=== PATIENT | female | born 1965 | race Caucasian/White ===

== ENCOUNTER → 2018-07-18 | Outpatient (CLI) | payer OTHER ==
--- NOTE | 2018-07-19 12:33 | MM ---
Reason for exam: additional evaluation requested from prior study. Last mammogram was performed 8 years and 4 months ago. History: Patient is postmenopausal. Benign cyst aspiration of the right breast, 2000. Took estrogen for 14 years beginning at age 26. Physical Findings: Nurse did not find any significant physical abnormalities on exam. MG 3D Diag Mammo W/Cad JULIEN Bilateral CC and MLO view(s) were taken. Prior study comparison: March 30, 2010, bilateral diagnostic digital mammog. June 04, 2007, CAD bilateral diagnostic mammogram. The breast tissue is heterogeneously dense. This may lower the sensitivity of mammography. There is a 1.3 cm right upper outer quadrant posterior depth mass 8.5 cm from the nipple, additional upper quadrant subcentimeter middle depth mass is stable back to 2009. ASSESSMENT: Incomplete: need additional imaging evaluation, BI-RAD 0 RECOMMENDATION: Ultrasound of the right breast.
--- NOTE | 2018-07-19 12:42 | USB ---
History: Patient is postmenopausal. Benign cyst aspiration of the right breast, 2000. Took estrogen for 14 years beginning at age 26. US Breast Limited RT Right limited breast ultrasound including focal area of concern, retroareolar and axilla demonstrates 1.3 cm x 1.1 cm x 1.4 cm irregular shape, with angular margins, solid, vascular lesion at 10 o'clock. No suspicious axillary adenopathy. These results were verbally communicated with the patient and result sheet given to the patient on 07/18/18 ASSESSMENT: Highly suggestive of malignancy, BI-RAD 5 RECOMMENDATION: Ultrasound core biopsy of the right breast. Called Dr. Beasley with mammographic findings and has scheduled an appointment for the patient for 07/18/18 at 12:[address] Fletcher. The ultrasound core biopsy is schedualed for 07/29/18 at 12:20. PRELIMINARY REPORT CALLED AND FAXED TO DR. FLETCHER ON 07/18/18. [facility]
== END | disposition home or self-care (01) ==
LOC: RADMAMWWP 09:23
PROVIDERS: ATTEND Obstetrics & Gynecology
DX: N64.4 Mastodynia (principal); R92.8 Other abnormal and inconclusive findings on diagnostic imaging of breast
CPT/HCPCS: 77062; 77066

== ENCOUNTER → 2018-07-18 | Outpatient (CLI) | payer OTHER ==
[2018-07-18 13:12] VITALS: BP 121/68; PULSE 86; RESP 18; TEMP 98.3; BMI 27.1
--- NOTE | 2018-07-18 14:53 | P.GSHP ---
History of Present Illness H&P Date: 07/18/18 Chief Complaint: abnormal mammogram of right breast Hilary is a 53-year-old white female who approximately 6 months ago had a bilateral mammogram done in [place] and was recommended to have a repeat right breast mammogram performed at 6 months. Today she comes in for repeat right breast mammogram which reveals a 1.3 cm area in the right upper outer quadrant of the breast which is of some concern. She subsequently underwent an ultrasound of the right breast which again revealed a 1.4 cm lesion in the upper outer quadrant area and no suspicious axillary adenopathy. The patient herself feels some soreness in the breast but no discrete masses or lesions of concern. She does not report any nipple discharge or skin changes. She does not give any history of any trauma or infection to the breast. Family History: unknown adopted Hormonal History: menarche: 11 : 3, 2 live births, 1 [place], breast fed: no, first born at 20 menopause: hysterctomy at 28 took ovaries; endometriosis BCP: 2 years hormones: 24 years, weaned off 1 year ago Past Surgical History 1. KAYE/BSO 2. gallbaldder 3. appy right shoulder 4. left foot History 1. MS 2. arthritis Social History: smoke: 1/2/PPD for 20 years alcohol: none drugs: none - Constitutional Constitutional: Reports sweats - EENT Eyes: bilateral blurred vision (optic neuritis), bilateral pain Ears: deny: decreased hearing, tinnitus Ears, nose, mouth and throat: Reports headache, Denies sore throat - Breasts Breasts: bilateral: as per HPI - Cardiovascular Comment: fast heart rate - Respiratory Comment: smoker - Gastrointestinal Comment: cholcystectomy, IBS - Genitourinary (Female) Genitourinary: Reports kidney stones - Menstruation Menstruation: Reports post hysterectomy - Musculoskeletal Comment: arthritis, spastic muscles in her legs Musculoskeletal: Reports myalgias - Integumentary Comment: Occasional eczema Integumentary: Denies pruritus, Denies rash - Neurological Neurological: Reports numbness, Reports weakness - Psychiatric Psychiatric: Reports anxiety, Reports depression - Endocrine Endocrine: Reports fatigue, Denies weight change - Hematologic/Lymphatic Comment: none - Allergic/Immunologic Allergic/Immunologic: Reports seasonal allergies Past Medical History Past Medical History: Osteoarthritis (OA) Additional Past Medical History / Comment(s): Multipal sclerosis, opticneuritis, PTSD History of Any Multi-Drug Resistant Organisms: None Reported Past Surgical History: Adenoidectomy, Appendectomy, Cholecystectomy, Hysterectomy, Tonsillectomy Additional Past Surgical History / Comment(s): right shoulder,left foot Additional Past Anesthesia/Blood Transfusion Reaction / Comment(s): vomitting Past Psychological History: Depression, Panic Disorder, PTSD Smoking Status: Current every day smoker Past Drug Use History: None Reported Medications and Allergies Home Medications Medication Instructions Recorded Confirmed Type Atenolol [Tenormin] 37.5 mg PO DAILY 07/18/18 07/18/18 History Biotin 5,000 mcg PO DAILY 07/18/18 07/18/18 History Fluticasone Nasal [place] [Flonase 1 spray EA NOSTRIL DAILY 07/18/18 07/18/18 History Nasal [place]] Sertraline [Zoloft] 50 mg PO DAILY 07/18/18 07/18/18 History Allergies Allergy/AdvReac Type Severity Reaction Status Date / Time iodine AdvReac Severe Anaphylaxis Unverified 07/18/18 13:17 Sulfa (Sulfonamide AdvReac Severe Anaphylaxis Unverified 07/18/18 13:17 Antibiotics) tree nut AdvReac Anaphylaxis Unverified 07/18/18 13:17 Surgical - Exam Vital Signs Temp Pulse Resp BP Pulse Ox 98.3 F 86 18 121/68 99 07/18/18 12:53 07/18/18 12:53 07/18/18 12:53 07/18/18 12:53 07/18/18 12:53 BMI 27.2 - General well developed, well nourished, no distress - Eyes normal ocular movement - ENT normal pinna, no hearing loss - Neck no masses, trachea midline - Respiratory normal respiratory effort, clear to auscultation - Cardiovascular Rhythm: regular Heart Sounds: normal: S1, S2 - Abdomen Abdomen: soft - Integumentary no rash, no abnormal pigmentation - Musculoskeletal normal gait, normal posture - Psychiatric oriented to time, oriented to person, oriented to place, speech is normal, memory intact Breast examination: Right breast: Multi-positional exam some increased fullness in the upper outer quadrant area no dominant discrete masses however appreciated Right axilla: No adenopathy of concern Left breast no adenopathy of concern Multi-positional exam no dominant masses of concern Left axilla: No adenopathy of concern Results Right breast mammogram and ultrasound results reviewed Assessment and Plan Assessment: Impression: 1. Radiographic abnormality right breast 2. Multiple sclerosis 3. Arthritis 4. Irritable bowel syndrome Plan: 1. Ultrasound-guided core biopsy right breast 2. Obtain report of left breast mammogram 3. Medical management of medical conditions 4. Follow-up 1 week after biopsy performed In benefits of the procedure discussed with the patient this will be scheduled in the near future. Cc: Dr. Natasha Lopez
== END | disposition home or self-care (01) ==
LOC: WWCWWP 11:51
PROVIDERS: ATTEND Surgery
DX: Z53.9 Procedure and treatment not carried out, unspecified reason (principal)

== ENCOUNTER → 2018-07-29 | Day surgery (SDC) | payer OTHER ==
[2018-07-29 11:41] VITALS: RESP 16; TEMP 98.9; BMI 27.1
[2018-07-29 13:13] VITALS: BP 99/63; PULSE 84
--- NOTE | 2018-07-29 13:53 | USB ---
EXAMINATION TYPE: US biopsy breast VAD RT, MG diagnostic mammo RT wo CAD DATE OF EXAM: 07/29/2018 CLINICAL HISTORY: R92.8 ABN. LUMA. Abnormal ultrasound. TECHNIQUE: Ultrasound guided core biopsy of right breast with clip placement and follow-up diagnostic two-view mammogram. COMPARISON: Recent 3-D mammogram July 18, 2018. Outside mammogram and ultrasound November 28, 2017 and older studies. FINDINGS: The procedure of ultrasound guided core biopsy was explained to the patient. Benefits, alternatives, and risks were discussed. An informed consent was then obtained. The patient was placed in supine positioning for imaging and for the procedure. Preprocedure ultrasound redemonstrates lobulated heterogeneous hypoechoic 1.4 cm mass at 10:00 position in the right breast enlarged from old outside ultrasound. The overlying skin was prepped and draped in usual sterile fashion. Lidocaine buffered with bicarbonate was used as anesthetic into the skin. Lidocaine with epinephrine is used as anesthetic into the deeper tissue up to area of concern in the right breast. Under ultrasound guidance, a 12-gauge vacuum assisted biopsy gun device was used to obtain 3 core samples. Following this, a biopsy clip was left in lesion. The patient tolerated the procedure well without any immediate complication. The patient was kept in the radiology department for short stay after the procedure and then discharged home in stable condition. Postprocedure mammogram shows successful deployment of clip in corresponding lesion on mammogram upper outer quadrant. IMPRESSION: Successful, uncomplicated ultrasound guided core biopsy of area of concern in the right breast, full pathology results to follow. High index of suspicion noted at time of procedure, enlarging solid mass. 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 See Surgical Pathology Cancer Case Summary. Recommendation Surgical consult of the right breast. YVAN
== END ==
LOC: RADUSWWP 11:23
PROVIDERS: ATTEND Surgery
DX: C50.811 Malignant neoplasm of overlapping sites of right female breast (principal); Z91.040 Latex allergy status; Z91.018 Allergy to other foods; Z88.2 Allergy status to sulfonamides; Z91.09 Other allergy status, other than to drugs and biological substances
CPT/HCPCS: 88305; 77065; 19083; A4648; J2001

== ENCOUNTER → 2018-08-07 | Outpatient (CLI) | payer OTHER ==
[2018-08-07 11:49] VITALS: BP 118/70; PULSE 87; RESP 18; TEMP 98.4
--- NOTE | 2018-08-07 12:45 | P.PN ---
Subjective Progress Note Date: 08/07/18 Principal diagnosis: Patient comes for biopsy results Hilary is a 53-year-old white female who is status post right breast ultrasound core biopsy on 120 . Pathology revealed a end base of ductal carcinoma of the breast. This was grade 3, ER/NH negative, HER-2/antonieta equivocal. The patient has no complaints related to the procedure. She had no axillary adenopathy of concern radiographically. The lesion was approximately 1.4 cm in size. Objective - Vital Signs Vital signs: Vital Signs Temp 98.4 F 08/07/18 11:43 Pulse 87 08/07/18 11:43 Resp 18 08/07/18 11:43 BP 118/70 08/07/18 11:43 Pulse Ox 95 08/07/18 11:43 Intake & Output 08/06/18 08/07/18 08/07/18 18:59 06:59 18:59 Weight 63.957 kg - Constitutional General appearance: Present: average body habitus - EENT Eyes: Present: EOMI ENT: Present: hearing grossly normal - Neck Neck: Present: normal ROM - Respiratory Respiratory: bilateral: CTA - Cardiovascular Rhythm: regular Heart sounds: normal: S1, S2 - Gastrointestinal General gastrointestinal: Present: soft - Integumentary Integumentary Comment(s): Core biopsy site clean and dry Mild ecchymosis at biopsy site No evidence of any infection or hematoma Integumentary: Present: normal turgor - Musculoskeletal Musculoskeletal: Present: gait normal - Psychiatric Psychiatric: Present: A&O x's 3, appropriate affect, intact judgment & insight - Additional findings Additional findings: Patient's mammogram and ultrasound again reviewed with radiology. Assessment and Plan Assessment: Impression: 1. Right breast [id number] clinically invasive breast cancer Tumor [id number] Her2/Antonieta equivical, Grade 3 2. Fibromyalgia It had a long discussion with the patient regarding options for treatment. These include mastectomy plus or minus reconstruction versus lumpectomy with optical plastic closure and possible BioSorb placement. I have also discussed sentinel node biopsy as well as possible axillary node dissection. I've included risks which are bleeding, infection, reaction to the anesthetic, possible positive margins requiring additional surgery. The patient wishes to proceed with a lumpectomy and sentinel node biopsy. She understands the risks and benefits. Plan: 1. Needle localization lumpectomy right breast, sentinel node injection with sentinel biopsy, possible axillary node dissection 2. Medical clearance from Natasha Duron Cc: Natasha Lopez
== END ==
LOC: WWCWWP 11:29
PROVIDERS: ATTEND Surgery
DX: Z53.9 Procedure and treatment not carried out, unspecified reason (principal)

== ENCOUNTER 2018-08-19 07:20 | Day surgery (SDC) | payer OTHER ==
[2018-08-13 15:55] VITALS: BMI 27.0
[~2018-08-19 07:20] MED LIST: HEPARIN SODIUM,PORCINE 5,000 UNIT/ML 1 ML VIAL SQ ONE; Pre Op ABX Message 1 EACH MISC MISCELLANE ONE
[2018-08-19] MEDS ORDERED: ALPRAZolam 0.5 MG TAB PO ONE (08:13)
[2018-08-19] MEDS ORDERED: LACTATED RINGERS 1,000 ML IV ONE ×2 (08:23→11:09)
[2018-08-19 08:24] LABS: Glucose,Whole Blood 121 mg/dL (75-99)
[2018-08-19] MEDS ORDERED: SODIUM BICARB 4% 5 ML VIAL (0.48 MEQ/ML) MISCELLANE ONE (08:54)
[2018-08-19] MEDS ORDERED: LIDOCAINE 1% INJ 10MG/ML (20 ML MDV) SQ ONE (08:54)
--- NOTE | 2018-08-19 09:15 | P.GSHP ---
History of Present Illness H&P Date: 08/19/18 Chief Complaint: Right breast cancer Hilary is a 53-year-old white female who [place] [id number]. Pathology revealed an invasive ductal carcinoma. Clinically this is a T1 N0 M0 ER negative. Negative HER-2/antonieta equivocal Grade 3 stage IB breast cancer. Her case was presented at tumor board and secondary to the fact that this is a triple negative tumor it was recommended she undergo BRCA1 testing. She was given the option of BRCA1 testing however at this time she declined stating she wished to proceed with a lumpectomy and sentinel node biopsy. She states that she may have BRCA1 testing in the future, she understands that this is positive that she would be a candidate for bilateral mastectomy and at this time she wishes to proceed with a lumpectomy. The patient gives no history of any trauma or infection to the breast. Family history: Unknown adopted I will history: Menarche: 11 Pregnancies: 3, 2 live process, one miscarriage, breast-fed: No First child was born at 20 Menopause: Hysterectomy at 28 to Crohn's disease done for endometriosis control pills: 2 years Hormones: 24 years weaned off 1 year ago Past surgical history: 1. KAYE/BSO 2. Cholecystectomy 3. Appendectomy 4. Right shoulder surgery 5. Left foot surgery Past medical history: 1. MS 2. Arthritis 3. Recent EKG changes cleared by cardiology Social history: Smoked: Half a pack per day for 20 years Alcohol: Negative Drugs: Negative - Constitutional Constitutional: Reports sweats - EENT Comment: Optic neuritis Eyes: bilateral blurred vision, bilateral pain Ears: deny: decreased hearing, tinnitus Ears, nose, mouth and throat: Reports headache - Breasts Breasts: bilateral: as per HPI - Cardiovascular Comment: Recent change in EKG seen and cleared by cardiology - Respiratory Comment: smoker - Gastrointestinal Comment: Cholcystectomy IBS - Genitourinary (Female) Genitourinary: Reports kidney stones - Menstruation Menstruation: Reports post hysterectomy - Musculoskeletal Comment: arthritis spastic muscle in her legs - Integumentary Comment: Occasional eczema - Neurological Neurological: Reports numbness, Reports weakness - Psychiatric Psychiatric: Reports anxiety, Reports depression - Endocrine Endocrine: Reports fatigue - Allergic/Immunologic Allergic/Immunologic: Reports seasonal allergies Past Medical History Past Medical History: Asthma, Cancer, Diabetes Mellitus, GERD/Reflux, GI Bleed, Musculoskeletal Disorder, Osteoarthritis (OA) Additional Past Medical History / Comment(s): Patient states tachycardia, seasonal allergies, deviated septum, Diet controlled Diabetes.,Multiple Sclerosis with numbness left hand and left face., optic neuritis , Hiatal Hernia., Hepatitis with mono (teenager)., Hx of stomach ulcers, IBD., Kidney Stones, Difficulty with hand eye coordination at times., Breast cancer. History of Any Multi-Drug Resistant Organisms: None Reported Past Surgical History: Adenoidectomy, Appendectomy, Cholecystectomy, Hysterectomy, Orthopedic Surgery, Tonsillectomy Additional Past Surgical History / Comment(s): Total hysterectomy at age 28, Right shoulder: (bone spurs, arthritis, partial clavicle removal) Left foot: Mercado's neuroma tumor, cystocele/rectocele Past Anesthesia/Blood Transfusion Reactions: Motion Sickness, Postoperative Nausea & Vomiting (PONV) Additional Past Anesthesia/Blood Transfusion Reaction / Comment(s): Adompted- unknown family hx. Past Psychological History: Anxiety, Depression, PTSD Additional Psychological History / Comment(s): (Patient states that her step daughter was killed in a car accident in the summer of 2016, and she is suffering from PTSD) Smoking Status: Current every day smoker Past Alcohol Use History: Rare Additional Past Alcohol Use History / Comment(s): 1/2 pack day off and on for 20 years . (quit 4 years) Past Drug Use History: Marijuana Additional Drug Use History / Comment(s): marijuana use for MS - Past Family History Father History Unknown: Yes Additional Family Medical History / Comment(s): adopted Mother History Unknown: Yes Additional Family Medical History / Comment(s): adopted Medications and Allergies Home Medications Medication Instructions Recorded Confirmed Type Fluticasone Nasal [place] [Flonase 1 spray EA NOSTRIL QAM 07/18/18 08/19/18 History Nasal [place]] Atenolol [Tenormin] 37.5 mg PO DAILY 08/13/18 08/19/18 History Biotin 5,000 mcg PO DAILY 08/13/18 08/19/18 History Citalopram Hydrobromide [CeleXA] 20 mg PO HS 08/13/18 08/19/18 History Multivitamins, Thera [Multivitamin 1 tab PO DAILY 08/13/18 08/19/18 History (formulary)] Omeprazole 20 mg PO DAILY 08/13/18 08/19/18 History Allergies Allergy/AdvReac Type Severity Reaction Status Date / Time Penicillins Allergy Unknown bleeding Verified 08/19/18 07:51 ulcer latex Allergy Rash/Hives Verified 08/19/18 07:51 iodine AdvReac Severe Anaphylaxis Verified 08/19/18 07:51 Sulfa (Sulfonamide AdvReac Severe Anaphylaxis Verified 08/19/18 07:51 Antibiotics) tree nut AdvReac Severe Anaphylaxis Verified 08/19/18 07:51 Surgical - Exam Vital Signs Temp Pulse Resp BP Pulse Ox 98.5 F 81 18 123/60 94 L 08/19/18 08:07 08/19/18 08:07 08/19/18 08:07 08/19/18 08:07 08/19/18 08:07 BMI 27.2 - General well developed, well nourished, no distress - Eyes normal ocular movement - ENT normal pinna, no hearing loss - Neck no masses, trachea midline - Respiratory normal respiratory effort, clear to auscultation - Cardiovascular Rhythm: regular Heart Sounds: normal: S1, S2 - Abdomen Abdomen: soft - Integumentary no rash, no abnormal pigmentation - Neurologic no disoriented, no combative - Musculoskeletal normal gait, normal posture - Psychiatric oriented to time, oriented to person, oriented to place, speech is normal, memory intact Breast examination: Right breast: Mild ecchymosis related to poor biopsy Evidence of infection or hematoma Right axilla: No adenopathy of concern Left breast: No dominant masses or nodules of concern Left axilla: No adenopathy of concern Results Right breast mammogram ultrasound reviewed - Labs Abnormal Lab Results - Last 24 Hours (Table) 08/19/18 Range/Units 08:20 POC Glucose (mg/dL) 121 H (75-99) mg/dL Assessment and Plan Assessment: Impression: 1. Right breast invasive ductal carcinoma 2. Multiple sclerosis 3. Arthritis 4. Irritable bowel syndrome 5. Patient given option of BRCA1 testing Plan: 1. Patient declined BRCA1 testing at this time 2. Right breast lumpectomy with sentinel node biopsy 3. Medical management of medical conditions CC:Natasha Lopez
[2018-08-19] MEDS: ONDANSETRON 4 MG/2 ML VIAL IVP ONE ×2 (09:42→12:29)
[2018-08-19] MEDS ORDERED: DEXAMETHASONE SOD PHOSPHATE 10 MG/ML 1 ML VIAL IV ONE (09:43)
[2018-08-19] MEDS ORDERED: SCOPOLAMINE 1.5MG/72HR PATCH TRANSDERM ONE (09:45)
[2018-08-19] MEDS ORDERED: fentaNYL (PF) 50 MCG/ML 2 ML AMP ONE (09:57)
[2018-08-19] MEDS ORDERED: ePHEDrine SULFATE/0.9% NACL/PF 50 MG/5 ML SYRINGE IV ONE (09:57)
[2018-08-19] MEDS ORDERED: LIDOCAINE 1% INJ 10MG/ML (20 ML MDV) ONE (09:57)
[2018-08-19] MEDS ORDERED: PROPOFOL 10 MG/ML 20 ML VIAL IV ONE (09:57)
[2018-08-19] MEDS ORDERED: MIDAZOLAM 2 MG/2 ML VIAL ONE (09:57)
[2018-08-19] MEDS ORDERED: HEPARIN SODIUM,PORCINE 5,000 UNIT/ML 1 ML VIAL SQ ONE (10:03)
--- NOTE | 2018-08-19 10:06 | P.PN ---
Progress Note - Text Progress Note Date: 08/19/18 The patient's case was presented at tumor Board. Following tumor Board the patient was given the option of BRCA1 testing prior to surgery. The patient declined this at the present time. Patient wished to proceed with a right breast lumpectomy and sentinel node biopsy. She may decide to have BRCA1 testing done in the future however, at this time she has declined.
--- NOTE | 2018-08-19 10:08 | P.NAPBC ---
NAPBC Queries - NAPBC Queries Was patient's case review presented at [facility] tumor board? If no, comment.: Yes Was patient's pathology reviewed at [facility]? If no, comment.: Yes Was breast conservation surgery offered? If no, comment.: Yes (discussed BRCA testing and declined at this time) Was sentinel node biopsy offered? If no, comment.: Yes Was diagnosis confirmed by percutaneous core biopsy? If no, comment.: Yes If mastectomy patient, was a preop referral to a reconstructive surgeon offered? : Yes (chose to have lumpectomy) Clinical Stage: STAGE 1B ([id number] Grade3)
--- NOTE | 2018-08-19 10:25 | NM ---
EXAMINATION TYPE: NM sentinel node injection DATE OF EXAM: 08/19/2018 COMPARISON: NONE HISTORY: 53-year-old female with biopsy-proven right breast cancer scheduled for surgery today TECHNIQUE AND FINDINGS: The procedure of sentinel lymph node injection was explained to the patient. The benefits, alternatives, and risks were discussed. An informed consent was then obtained. Overlying skin is cleaned with sterile alcohol. Following this, 492 uCi Tc 99m Tilmanocept was inject ed surrounding the upper outer aspect of the right nipple intradermally. The patient tolerated the procedure well without any immediate complication. The patient was kept in the radiology department for short stay after the procedure and then taken to surgery for surgical p rocedure what is presumed intraoperative gamma probe will be used for sentinel lymph node detection. IMPRESSION: Right breast radiotracer injection for sentinel node localization as above.
--- NOTE | 2018-08-19 11:50 | P.OP ---
Date of Procedure: 08/19/18 Preoperative Diagnosis: Right breast cancer Postoperative Diagnosis: same Procedure(s) Performed: Right sentinel node biopsy, needle localization lumpectomy right breast, tissue transfer for onco-plastic closure Anesthesia: JOYA Surgeon: Rachael Fletcher Estimated Blood Loss (ml): 10 IV fluids (ml): 1,000 Pathology: other ([place] node, right breast lumpectomy) Condition: stable Disposition: PACU Indications for Procedure: Core biopsy-proven right breast cancer Operative Findings: Dense breast tissue Description of Procedure: The patient was taken to the operating room and the right breast and axilla were prepped and draped in a sterile fashion. This was after the patient had gone to radiology for needle localization of the area of concern in the right breast a been performed, and the periareolar area injected with radioactive substance to identify the sentinel node. Following induction of anesthesia the neoprobe was placed in a sterile sleeve and interrogation of the axilla revealed increased radioactivity. Therefore no methylene blue was injected. The patient was then prepped and draped in a sterile fashion. Utilizing the neoprobe the area of greatest radio activity was identified. An incision was made at this site. Dissection was carried down to the pectoralis major muscle and into the area of the axilla. Deep within the axilla in the area of increased radioactivity was identified. This area was grasped using an Allis clamp. The area was resected and interrogated using the radioactive probe. The 10 second count on the node was 7728. The background 10 second count was 49. The wound was well irrigated. No evidence of any active bleeding was identified. A small vessel was identified although this was not actively bleeding, this was grasped using a right angle and ligated. A #10 Henry-Griggs was placed in the axilla. The deep tissues were closed using 3-0 Vicryl suture. The skin was closed using 4-0 Monocryl. The drain was secured using a nylon suture. Then node was sent for pathologic evaluation. Frozen section was not obtained as this is not clear to be suspicious intraoperatively. The area of the breast was approached. An incision was made and carried down to the shaft of the needle. This was grasped using an Allis clamp. Circumferential dissection around the needle was performed. Wide excision was performed and the specimen was painted for orientation. The dissection was performed down to the pectoralis major muscle posteriorly. Palpation revealed that the superior aspect of the lesion may be close to the palpable abnormality and therefore additional superior tissue was obtained. This was also painted for orientation. After assured that hemostasis was attained tissue was freed for on-call plastic tissue rearrangement and closure. Superiorly the area was approximately 5 x 2 cm and inferiorly the area was approximated 5 x 2 cm. Titanium clips were placed in the cavity where tumor had been removed. The tissue was then rearranged to close over this area and this was performed using 3-0 Vicryl suture. Radiograph of the specimen revealed the area of concern about removed. The skin was closed using 4-0 Monocryl. The patient tolerated the procedure in stable condition. All instrument and sponge counts were correct at the end of the case. The patient tolerated the procedure in stable condition.
--- NOTE | 2018-08-19 11:52 | P.DS ---
Providers Attending physician: Rachael Fletcher Primary care physician: Bryson Montez Plan - Discharge Summary Discharge Rx Participant: Yes New Discharge Prescriptions: No Action Fluticasone Nasal Collyer [Flonase Nasal Collyer] 1 spray EA NOSTRIL QAM Multivitamins, Thera [Multivitamin (formulary)] 1 tab PO DAILY Citalopram Hydrobromide [CeleXA] 20 mg PO HS Atenolol [Tenormin] 37.5 mg PO DAILY Omeprazole 20 mg PO DAILY Biotin 5,000 mcg PO DAILY Discharge Medication List Fluticasone Nasal Collyer [Flonase Nasal Collyer] 1 spray EA NOSTRIL QAM 07/18/18 [ History] Atenolol [Tenormin] 37.5 mg PO DAILY 08/13/18 [History] Biotin 5,000 mcg PO DAILY 08/13/18 [History] Citalopram Hydrobromide [CeleXA] 20 mg PO HS 08/13/18 [History] Multivitamins, Thera [Multivitamin (formulary)] 1 tab PO DAILY 08/13/18 [History ] Omeprazole 20 mg PO DAILY 08/13/18 [History] Follow up Appointment(s)/Referral(s): Rachael Fletcher MD [STAFF PHYSICIAN] - 1 Week Patient Instructions/Handouts: *Surgery [facility] - Scopalamine Patch Instructions Activity/Diet/Wound Care/Special Instructions: Operative assistance Do not drive today Wear bra at all times until seen by Dr. Gtz device and the shower May shower after 48 hours Discharge Disposition: HOME SELF-CARE
[2018-08-19 12:11] VITALS: TEMP 97.2
[2018-08-19 12:19] VITALS: RESP 16
[2018-08-19] MEDS ORDERED: PROMETHAZINE INJ 25 MG/ML 1 ML VIAL IVPB ONE (12:33)
[2018-08-19] MEDS ORDERED: HYDROcodone/APAP 5-325MG 1 EACH TAB PO ONE (13:30)
[2018-08-19 13:55] VITALS: BP 97/65; PULSE 86
--- NOTE | 2018-08-19 16:49 | MM ---
EXAMINATION TYPE: MG pre op needle loc RT, MG surgical specimen RT DATE OF EXAM: 08/19/2018 COMPARISON: 07/29/2018 CLINICAL HISTORY: 53-year-old female with biopsy-proven right breast cancer TECHNIQUE: Needle localization with wire placement and surgical excision of area of concern in the ri t breast. FINDINGS: The procedure of needle localization with wire placement and than surgical excision was exp lained to the patient. Benefits, alternatives, and risks were discussed. An informed consent was th en obtained. The shortest pathway for procedure was chosen. Shortest pathway was a lateral approach. The overlyin g skin was prepped and draped in usual sterile fashion. Lidocaine buffered with bicarbonate was used as anesthetic into the skin and subcutaneous tissue up to the level of area of concern. A 7 cm need le was used. It was placed via a lateral approach under mammographic guidance. Subsequent 90 degree s mammogram show the needle to be in satisfactory position relative to the targeted area. At this po int, wire was placed and the needle was withdrawn. The wire was fixed to patient's skin. Images wer e marked for surgeon. The patient tolerated the procedure well without any immediate complication. The patient was kept in the radiology department for short stay after the procedure and then taken to surgery for surgical e xcision. Targeted clip, associated mass, and wire are identified in specimen mammogram. The patient was kept in hospital for short stay after the procedure and then discharged home in stable condition. IMPRESSION: Successful, uncomplicated needle localization with wire placement and surgical excision of biopsy-pro kartik right breast cancer; full pathology results to follow.
== END 2018-08-19 15:00 | disposition home or self-care (01) ==
LOC: OR 07:20
PROVIDERS: ATTEND Surgery
DX: C50.911 Malignant neoplasm of unspecified site of right female breast (principal); G35 Multiple sclerosis; M19.90 Unspecified osteoarthritis, unspecified site; K58.9 Irritable bowel syndrome, unspecified; M79.7 Fibromyalgia; I10 Essential (primary) hypertension; E11.9 Type 2 diabetes mellitus without complications; F17.210 Nicotine dependence, cigarettes, uncomplicated; Z90.710 Acquired absence of both cervix and uterus; H46.9 Unspecified optic neuritis; Z87.442 Personal history of urinary calculi; F41.9 Anxiety disorder, unspecified; F32.9 Major depressive disorder, single episode, unspecified; F43.10 Post-traumatic stress disorder, unspecified; J45.909 Unspecified asthma, uncomplicated; K21.9 Gastro-esophageal reflux disease without esophagitis; Z79.899 Other long term (current) drug therapy; Z91.048 Other nonmedicinal substance allergy status; Z88.0 Allergy status to penicillin; Z88.2 Allergy status to sulfonamides; Z91.030 Bee allergy status; Z91.018 Allergy to other foods; Z91.013 Allergy to seafood; Z88.8 Allergy status to other drugs, medicaments and biological substances; Z91.040 Latex allergy status
CPT/HCPCS: 76098; 19281; 38792; 19301; 38525; 14000; A9520; J2250; J1644; J1100; J2550; J2405; J2001; J3010; J2704

== ENCOUNTER 2018-08-22 13:38 | Emergency (ER) | payer OTHER ==
--- NOTE | 2018-08-22 15:05 | ED ---
General Adult HPI - General Chief complaint: Recheck/Abnormal Lab/Rx Stated complaint: Poss DVT Time Seen by Provider: 08/22/18 13:59 Source: patient, RN/MD, RN notes reviewed Mode of arrival: ambulatory Limitations: no limitations - History of Present Illness Initial comments: Is a 53-year-old female who is status post a right lumpectomy with No dissection 3 days ago who presents complaining of bilateral leg pain in the calfs. She was seen by her doctor and sent here for further evaluation she denies any overt chest pain or shortness of breath other than at the surgical site she thinks perhaps some edema. No fevers chills nausea vomiting sweats. No prior history of DVT or pulmonary emboli. No known clotting disorders. - Related Data Home Medications Medication Instructions Recorded Confirmed Fluticasone Nasal [place] [Flonase 1 spray EA NOSTRIL QAM 07/18/18 08/22/18 Nasal [place]] Atenolol [Tenormin] 37.5 mg PO DAILY 08/13/18 08/22/18 Biotin 5,000 mcg PO DAILY 08/13/18 08/22/18 Citalopram Hydrobromide [CeleXA] 20 mg PO HS 08/13/18 08/22/18 Multivitamins, Thera [Multivitamin 1 tab PO DAILY 08/13/18 08/22/18 (formulary)] Omeprazole 20 mg PO DAILY 08/13/18 08/22/18 Allergies Allergy/AdvReac Type Severity Reaction Status Date / Time Penicillins Allergy Unknown bleeding Verified 08/22/18 14:30 ulcer latex Allergy Rash/Hives Verified 08/22/18 14:30 iodine AdvReac Severe Anaphylaxis Verified 08/22/18 14:30 Sulfa (Sulfonamide AdvReac Severe Anaphylaxis Verified 08/22/18 14:30 Antibiotics) tree nut AdvReac Severe Anaphylaxis Verified 08/22/18 14:30 Review of Systems ROS Statement: Those systems with pertinent positive or pertinent negative responses have been documented in the HPI. ROS Other: All systems not noted in ROS Statement are negative. Past Medical History Past Medical History: Asthma, Cancer, Diabetes Mellitus, GERD/Reflux, GI Bleed, Musculoskeletal Disorder, Osteoarthritis (OA) Additional Past Medical History / Comment(s): Patient states tachycardia, seasonal allergies, deviated septum, Diet controlled Diabetes.,Multiple Sclerosis with numbness left hand and left face., optic neuritis , Hiatal Hernia., Hepatitis with mono (teenager)., Hx of stomach ulcers, IBD., Kidney Stones, Difficulty with hand eye coordination at times., Breast cancer. History of Any Multi-Drug Resistant Organisms: None Reported Past Surgical History: Adenoidectomy, Appendectomy, Cholecystectomy, Hysterectomy, Orthopedic Surgery, Tonsillectomy Additional Past Surgical History / Comment(s): Total hysterectomy at age 28, Right shoulder: (bone spurs, arthritis, partial clavicle removal) Left foot: Mercado's neuroma tumor, cystocele/rectocele Past Anesthesia/Blood Transfusion Reactions: Motion Sickness, Postoperative Nausea & Vomiting (PONV) Additional Past Anesthesia/Blood Transfusion Reaction / Comment(s): Adompted- unknown family hx. Past Psychological History: Anxiety, Depression, PTSD Smoking Status: Current every day smoker Past Alcohol Use History: Rare Past Drug Use History: Marijuana - Past Family History Father History Unknown: Yes Additional Family Medical History / Comment(s): adopted Mother History Unknown: Yes Additional Family Medical History / Comment(s): adopted General Exam - General Exam Comments Initial Comments: This is a well-developed well-nourished awake alert oriented 3 female Limitations: no limitations General appearance: alert, in no apparent distress Head exam: Present: atraumatic, normocephalic, normal inspection Eye exam: Present: normal appearance, PERRL, EOMI. Absent: scleral icterus, conjunctival injection, periorbital swelling ENT exam: Present: normal exam, mucous membranes moist Neck exam: Present: normal inspection. Absent: tenderness, meningismus, lymphadenopathy Respiratory exam: Present: normal lung sounds bilaterally, other (Did not examine the chest wall as this was just examined by her physician.). Absent: respiratory distress, wheezes, rales, rhonchi, stridor Cardiovascular Exam: Present: regular rate, normal rhythm, normal heart sounds. Absent: systolic murmur, diastolic murmur, rubs, gallop, clicks GI/Abdominal exam: Present: soft, normal bowel sounds. Absent: distended, tenderness, guarding, rebound, rigid Extremities exam: Present: normal inspection, full ROM, normal capillary refill , other (Very mild discomfort palpation NO palpable cords) Back exam: Present: normal inspection Neurological exam: Present: alert, oriented X3, CN II-XII intact Psychiatric exam: Present: normal affect, normal mood Skin exam: Present: warm, dry, intact, normal color. Absent: rash Course Vital Signs 08/22/18 13:43 Temperature 99.8 F H Pulse Rate 74 Respiratory 20 Rate Blood Pressure 113/72 O2 Sat by Pulse 95 Oximetry Medical Decision Making - Medical Decision Making I did discuss findings with the patient she will be discharged and follow-up as per prior recommendations. No evidence of DVT on ultrasound. - Radiology Data Radiology results: report reviewed (I did review the imaging and report no acute findings.), image reviewed Disposition Clinical Impression: Leg pain, bilateral, Feared condition not demonstrated Disposition: HOME SELF-CARE Condition: Good Instructions (If sedation given, give patient instructions): Leg Pain (ED) Is patient prescribed a controlled substance at d/c from ED?: No Referrals: Natasha Lopez NPC [Primary Care Provider] - 1-2 days
--- NOTE | 2018-08-22 15:06 | US ---
EXAMINATION TYPE: US venous doppler duplex LE BI DATE OF EXAM: 08/22/2018 2:29 PM COMPARISON: NONE CLINICAL HISTORY: Pain. Recent breast surgery, pain in legs SIDE PERFORMED: Bilateral TECHNIQUE: The lower extremity deep venous system is examined utilizing real time linear array sonog lesli with graded compression, doppler sonography and color-flow sonography. VESSELS IMAGED: External Iliac Vein (EIV) Common Femoral Vein Deep Femoral Vein Greater Saphenous Vein * Femoral Vein Popliteal Vein Small Saphenous Vein * Proximal Calf Veins (* superficial vessels) Grayscale, color doppler, spectral doppler imaging performed of the deep veins of the lower extremiti es. There is normal flow, compressibility, vascular waveforms. Right Leg: Negative for DVT Left Leg: Negative for DVT IMPRESSION: No sonographic evidence of deep venous thrombosis within either lower extremity.
--- NOTE | 2018-08-22 16:00 | ED ---
Disposition Clinical Impression: Leg pain, bilateral, Feared condition not demonstrated, Status post right breast lumpectomy Disposition: HOME SELF-CARE Condition: Good Instructions (If sedation given, give patient instructions): Leg Pain (ED) Is patient prescribed a controlled substance at d/c from ED?: No Referrals: Natasha Lopez NPC [Primary Care Provider] - 1-2 days
[2018-08-22 16:05] VITALS: BP 110/70; PULSE 70; RESP 18; TEMP 99
== END 2018-08-22 16:05 | disposition home or self-care (01) ==
LOC: EC 13:38
DX: M79.661 Pain in right lower leg (principal); M79.662 Pain in left lower leg; J45.909 Unspecified asthma, uncomplicated; K21.9 Gastro-esophageal reflux disease without esophagitis; F41.9 Anxiety disorder, unspecified; F32.9 Major depressive disorder, single episode, unspecified; F43.10 Post-traumatic stress disorder, unspecified; F17.200 Nicotine dependence, unspecified, uncomplicated; Z90.11 Acquired absence of right breast and nipple; Z85.3 Personal history of malignant neoplasm of breast; Z79.899 Other long term (current) drug therapy; Z88.0 Allergy status to penicillin; Z91.040 Latex allergy status; Z91.048 Other nonmedicinal substance allergy status; Z88.2 Allergy status to sulfonamides; Z91.018 Allergy to other foods
CPT/HCPCS: 93970; 99283

== ENCOUNTER → 2018-08-22 | Outpatient (CLI) | payer OTHER ==
--- NOTE | 2018-08-22 13:34 | P.PN ---
Subjective Progress Note Date: 08/22/18 Principal diagnosis: Patient complaining of ecchymosis left lower abdominal wall Hilary is a 53-year-old white female who is status post right breast lumpectomy and sentinel node biopsy on . Postprocedure she has done well but recently noted that in the left lower abdomen she had some ecchymosis which was tender. This is believed to be in the area of a heparin shot. The patient has no complaints related to her breast or axilla. The LENORE drain output is minimal and serous. The patient is also complaining of bilateral ankle swelling. She states she does have this intermittently at times. Objective - Vital Signs Vital signs: Intake & Output 08/21/18 08/22/18 08/22/18 18:59 06:59 18:59 Weight 64.41 kg - Constitutional General appearance: Present: average body habitus - EENT Eyes: Present: EOMI ENT: Present: hearing grossly normal - Neck Neck: Present: normal ROM - Respiratory Respiratory: bilateral: CTA - Cardiovascular Rhythm: regular Heart sounds: normal: S1, S2 - Musculoskeletal Musculoskeletal Comment(s): Patient's ankles exam and no evidence of pitting edema no obvious swelling noted Calfs soft and supple Musculoskeletal: Present: gait normal - Psychiatric Psychiatric: Present: A&O x's 3, appropriate affect - Additional findings Additional findings: Breast examination: Right breast: Incision clean and dry right breast Incision clean and dry axilla, minimal serous output LENORE drain removed Examination of the abdomen reveals an area approximately 7 and half by 5 cm of superficial ecchymosis believed to be most likely related to the area of heparin injection Assessment and Plan Assessment: Impression: 1. Patient status post right breast lumpectomy and sentinel node biopsy for right breast invasive ductal carcinoma T1 N0 M0 grade 3 triple negative breast cancer. 2. Multiple sclerosis 3. Arthritis 4. Irritable bowel syndrome 5. Abdominal wall ecchymosis 6. Patient complaining of bilateral ankle swelling 7. Cardiac clearance obtained prior to surgery Plan: 1. Appointment with medical oncology 2. DC LENORE drain 3. Medical management of medical conditions 4. Consider duplex ultrasound as patient complaining of right calf swelling earlier today which has resolved, will send to ER 5. Appointment with radiation oncology CC: Michael Lopez
== END ==
LOC: WWCWWP 12:06
PROVIDERS: ATTEND Surgery
DX: Z53.9 Procedure and treatment not carried out, unspecified reason (principal)

== ENCOUNTER → 2018-08-29 | Outpatient (CLI) | payer OTHER ==
[2018-08-29 10:46] VITALS: BP 110/67; PULSE 90; RESP 18; TEMP 98.8; BMI 27.1
--- NOTE | 2018-08-29 11:20 | P.PN ---
Subjective Progress Note Date: 08/29/18 Hilary is a 53-year-old white female and she is status post right breast lumpectomy and sentinel node biopsy performed on . Postprocedure she has some swelling in her lower extremities and had some concern that she may have a DVT she was seen in the emergency room and was released with no evidence of DVT. She has no swelling at this time in her lower extremities. The patient has had a change in her social situation and has no support group in this area. Her is going to be in the [facility] [place] and she wishes to see a medical and radiation oncologist in [facility] [place]. Objective - Vital Signs Vital signs: Vital Signs Temp 98.8 F 08/29/18 10:39 Pulse 90 08/29/18 10:39 Resp 18 08/29/18 10:39 BP 110/67 08/29/18 10:39 Pulse Ox 96 08/29/18 10:39 Intake & Output 08/28/18 08/29/18 08/29/18 18:59 06:59 18:59 Weight 65.317 kg - Exam BMI 27.2 - Constitutional General appearance: Present: average body habitus - EENT Eyes: Present: EOMI ENT: Present: hearing grossly normal - Neck Neck: Present: normal ROM - Respiratory Respiratory: bilateral: CTA - Cardiovascular Rhythm: regular Heart sounds: normal: S1, S2 - Integumentary Integumentary: Present: normal turgor - Musculoskeletal Musculoskeletal: Present: gait normal - Psychiatric Psychiatric: Present: A&O x's 3, appropriate affect, intact judgment & insight - Additional findings Additional findings: Right breast: Incision clean and dry Right axilla: Incision clean and dry no evidence of any infection or hematoma Assessment and Plan Assessment: Impression: 1. Patient status post right breast lumpectomy and sentinel node biopsy done on 2. Tumor stage TI cN0 M0 ER negative. Negative HER-2/antonieta negative grade 3 Plan: 1. The patient is planning to move out of state. The patient will be seen by our medical oncologist and radiation oncologist prior to her move. The patient will follow up here in 2 weeks time CC: Michael Lopez. Dr. Montez
== END | disposition home or self-care (01) ==
LOC: WWCWWP 10:26
PROVIDERS: ATTEND Surgery
DX: Z53.9 Procedure and treatment not carried out, unspecified reason (principal)

== ENCOUNTER → 2018-09-11 | Outpatient (CLI) | payer OTHER ==
[2018-09-11 10:24] VITALS: BP 118/57; PULSE 84; RESP 16; TEMP 98.7; BMI 26.6
--- NOTE | 2018-09-11 10:54 | P.PN ---
Subjective Progress Note Date: 09/11/18 Principal diagnosis: right breast [id number] Hilary is a 53-year-old white female status post right breast lumpectomy and sentinel node biopsy on 08-19-18. She was noted to have a T1 N0 M0 triple negative grade 3 breast cancer. She subsequently been seen by Dr. Guadalupe and has been recommended to undergo ACT chemotherapy. Additionally she is considering radiation therapy however is planning to have a BRCA1 test done following the chemotherapy and if this is positive for most likely have bilateral mastectomies. Patient is having a port placed for chemotherapy next week. The patient is moving to [place] next week. She is going to pursue her treatment in [place]. Objective - Vital Signs Vital signs: Vital Signs Temp 98.7 F 09/11/18 10:19 Pulse 84 09/11/18 10:19 Resp 16 09/11/18 10:19 BP 118/57 09/11/18 10:19 Pulse Ox 97 09/11/18 10:19 Intake & Output 09/10/18 09/11/18 09/11/18 18:59 06:59 18:59 Weight 63.957 kg - Exam BMI 26.6 - Constitutional General appearance: Present: average body habitus - EENT Eyes: Present: EOMI ENT: Present: hearing grossly normal - Neck Neck: Present: normal ROM - Respiratory Respiratory: - Cardiovascular Rhythm: regular Heart sounds: - Gastrointestinal General gastrointestinal: Present: soft - Musculoskeletal Musculoskeletal: Present: gait normal, generalized weakness - Psychiatric Psychiatric: Present: A&O x's 3, appropriate affect, intact judgment & insight - Additional findings Additional findings: Right breast: Incision clean and dry Right axilla and incision clean and dry Assessment and Plan Assessment: Impression: 1. T1 N0 M0 triple negative grade 3 right breast cancer status post lumpectomy with negative margins 2. Patient is going to have chemotherapy a CT 3. Mediport being placed next week 3. Patient is moving to [place] in the future she will have BRCA1 testing may consider further surgical intervention Plan: 1. Mediport placement next week 2. ACT chemotherapy 3. BRCA1 testing in the future 4. Patient to follow up here in 4 months time CC: DR. Devine
== END | disposition home or self-care (01) ==
LOC: WWCWWP 09:44
PROVIDERS: ATTEND Surgery
DX: Z53.9 Procedure and treatment not carried out, unspecified reason (principal)

== ENCOUNTER 2018-09-15 14:39 | Inpatient (IN) | payer OTHER ==
[2018-09-15 22:03] VITALS: BMI 26.2
[2018-09-15] MEDS ORDERED: SODIUM CHLORIDE 0.9% 500 ML 500 ML IV ONE (23:10)
[2018-09-15] MEDS ORDERED: IPRATROPIUM-ALBUTEROL 3 ML NEB INHALATION PRN (23:12)
[2018-09-16] MEDS: OSELTAMIVIR 75 MG CAP PO SCH ×3 (00:25→21:00)
[2018-09-16] MEDS: SODIUM CHLORIDE 0.9% 1,000 ML IV SCH ×3 (00:26→16:16)
[2018-09-16] MEDS: ACETAMINOPHEN TAB 325 MG TAB PO PRN ×4 (03:22→22:32)
[2018-09-16] MEDS: NICOTINE 21MG/24HR PATCH TRANSDERM SCH (08:25)
[2018-09-16 08:36] LABS: Basophils % (A) 1 %; Eosinophils % (A) 1 %; HCT 41.5 % (34.0-46.0); HGB 14.2 gm/dL (11.4-16.0); Lymphocytes # (A) 1.3 k/uL (1.0-4.8); Lymphocytes % (A) 26 %; MCH 33.6 pg (25.0-35.0); MCHC 34.2 g/dL (31.0-37.0); MCV 98.2 fL (80.0-100.0); Mean Platelet Volume 7.5; Monocytes # (A) 0.4 k/uL (0-1.0); Monocytes % (A) 7 %; Neutrophils # (A) 3.1 k/uL (1.3-7.7); Neutrophils % (A) 64 %; Platelet Count 129 k/uL (150-450); RBC 4.22 m/uL (3.80-5.40); RDW 13.7 % (11.5-15.5); WBC 4.9 k/uL (3.8-10.6)
[2018-09-16] MEDS ORDERED: LEVOFLOXACIN 750MG-D5W PMX 750 MG in DEXTROSE/WATER 1 150ML.BAG IVPB SCH (09:00)
[2018-09-16 09:14] LABS: ALT 81 U/L (9-52); AST 56 U/L (14-36); Albumin 3.2 g/dL (3.5-5.0); Alkaline Phosphatase 65 U/L (38-126); Anion Gap 8 mmol/L; Blood Urea Nitrogen 11 mg/dL (7-17); C Reactive Protein 40.1 mg/L (<10.0); Calcium 8.3 mg/dL (8.4-10.2); Carbon Dioxide 20 mmol/L (22-30); Chloride 113 mmol/L (98-107); Glucose 100 mg/dL (74-99); Potassium 3.8 mmol/L (3.5-5.1); Sodium 141 mmol/L (137-145); Total Bilirubin 0.3 mg/dL (0.2-1.3); Total Protein 5.6 g/dL (6.3-8.2)
--- NOTE | 2018-09-16 10:37 | XR ---
EXAMINATION TYPE: XR chest 1V portable DATE OF EXAM: 09/16/2018 COMPARISON: NONE HISTORY: Shortness of breath, breast cancer TECHNIQUE: Single frontal view of the chest is obtained. FINDINGS: There is no pneumothorax seen. Question some patchy basilar density, possibly right middle lobe density. The cardiac silhouette size is within normal limits. Distal right clavicle shows proba ble resection change. Surgical clips over the right breast. There are cardiac leads. Right hemidiaphr agm is elevated. IMPRESSION: There may be underlying basilar atelectasis, right middle lobe pneumonia, follow-up PA a nd lateral chest x-ray suggested.
[2018-09-16] MEDS: ATENOLOL 25 MG TAB PO SCH (11:49)
[2018-09-16] MEDS ORDERED: IPRATROPIUM-ALBUTEROL 3 ML NEB INHALATION PRN (13:03)
--- NOTE | 2018-09-16 15:13 | CONS ---
CONSULTATION This is a 53-year-old female that we were asked to see in consultation for influenza and possible pneumonia. A very pleasant 53-year-old female who has a history of triple negative breast cancer and also has a history of multiple sclerosis. She also has history of diabetes mellitus. Anyway, she apparently presented to the [place] [facility] with complaints of not feeling well. She apparently had a high fever of 103 degrees. She had muscle aches and joint aches. She was also coughing, but not producing any phlegm. She just did not feel herself. She was evaluated there and found to have influenza and also thought to have pneumonia. She is coughing up some yellow-green phlegm, not a lot. No nausea, vomiting or diarrhea. The patient denies any chest pain or chest discomfort, but she does have chest congestion. She is short of breath. The patient did not have a chest x-ray here, but rather did have a chest x-ray once we saw her. We ordered a chest x-ray and the chest x-ray does show some bibasilar infiltrates and possible right middle lobe pneumonia. In addition, she is on Tamiflu for an episode of influenza. MEDICAL HISTORY: Includes posttraumatic stress disorder, degenerative joint disease. Irritable bowel syndrome, depression, and multiple sclerosis. She also has a history of diabetes and has a history of recently diagnosed triple negative breast cancer. SURGICAL HISTORY: Includes among other things adenoidectomy, lumpectomy of the right breast, appendectomy, cholecystectomy, tonsillectomy, colonoscopy, right shoulder surgery, hysterectomy and excision of a Mercado's neuroma on the left foot. FAMILY HISTORY: Negative. SOCIAL HISTORY: Positive for ongoing tobacco use. She started smoking in 1992. She has been cutting back. She denies any illicit drug use. She denies any significant alcohol use. ALLERGIES: Include IODINE, PENICILLIN, SULFA DRUGS, ADHESIVE TAPE, LATEX, and NUTS. HOME MEDICATIONS: Include atenolol, biotin, Celexa, Flonase, omeprazole. She is currently not taking anything for MS as she apparently has many different potential side effects. REVIEW OF SYSTEMS: CONSTITUTIONAL: Fever, chills. NEUROLOGIC: Negative. HEENT: Negative. CARDIOVASCULAR: Negative. PULMONARY: Shortness of breath, chest congestion, cough and some yellow phlegm production. GI: Negative. : Negative. RHEUMATOLOGIC: Negative. IMMUNOLOGIC: Negative. ENDOCRINOLOGIC: Negative. DERMATOLOGIC: Negative. PHYSICAL EXAMINATION: Current vital signs include temperature of 101.4, heart rate 92, respiratory rate 16, blood pressure 106/57 mean 73, room air saturation 96%. She appears in no respiratory distress. There is no audible wheezing. She is not using accessory muscles. The patient does not have any conversational dyspnea. HEENT examination is grossly unremarkable. Mucous membranes are moist. Face is somewhat flushed. Neck is supple. Full range of motion. No adenopathy or thyromegaly. Neck veins are flat. Cardiovascular examination reveals regular rhythm and rate. Heart rate about mid 90s. S1, S2 normal. There is no murmur. No S3, S4. Lungs reveal coarse rhonchi. There are some expiratory wheezes. No crackles. Breath sounds are equal bilaterally but diminished throughout. Abdomen is soft. Bowel sounds are heard. Extremities are intact. There is no cyanosis, clubbing, or edema. Skin without rash. Neurologic examination is brief but nonfocal. LAB DATA: Reviewed. White count 4.9, hemoglobin 14.2, hematocrit 41.5, platelet count is a 129,000. Sodium 141, potassium 3.8, chloride is 113, CO2 is 20, anion gap is 8, BUN and creatinine were 11 and 0.59. Lactic acid was 0.8, it was apparently elevated at [place]. Calcium 8.3, AST and ALT are 56 and 81 respectively. C-reactive protein is elevated at 40.1. Albumin is 3.2 Chest x-ray as mentioned shows bibasilar and possible right middle lobe infiltrate. Apparently influenza studies at the other hospital were positive. CURRENT MEDICATIONS: Include Tylenol, atenolol, citalopram, DuoNeb, levofloxacin, nicotine patch, Zofran, Tamiflu, and an IV of saline at 125 am an hour. ASSESSMENT: 1. Influenza A infection. 2. Pneumonia, involving lower lobes and possible right middle lobe, community- acquired. 3. History of diabetes mellitus. 4. History of multiple sclerosis. 5. History of ongoing tobacco use with nicotine addiction. 6. History of a posttraumatic stress disorder. 7. History of arthritis. 8. Irritable bowel syndrome. 9. History of depression. 10.Questionable history of asthma. PLAN: The patient's medications are reviewed. Will make sure she is on updrafts. I will probably add some Symbicort as well. She does not need any steroids at this time. We could leave her on Levaquin as monotherapy. She is on Tamiflu. We counseled her about the importance of smoking cessation. Alternatively, even though she has a PENICILLIN allergy, we could put her on Rocephin and Zithromax. I believe I will leave her on Levaquin for now. Additional recommendations and suggestions are forthcoming. I do seek out Dr. Guadalupe and left him know that his patient is currently in the hospital. She was supposed to have a port placed today, but obviously with influenza, pneumonia will not be able to have that done. Possibly before discharge, she could have it done. MMODL / IJN: [id number] /
--- NOTE | 2018-09-16 16:01 | P.HPIM ---
History of Present Illness H&P Date: 09/16/18 Chief Complaint: Influenza Patient is a 53-year-old female with a known history of breast cancer status post lumpectomy and sentinel lymph node biopsy currently patient is scheduled to get mediport for chemotherapy, asthma, diabetes type 2, fibromyalgia, GERD and osteoarthritis and other medical problems including multiple sclerosis initially presented to [facility] with complaints of cough congestion and not feeling very well. Patient was febrile with T-max of 104.2 and the hospital. Patient was also having generalized body aches. Patient was tested positive for influenza A. Patient was tachycardic and tachypneic along with lactic acid elevation at 2.2. Chest x-ray showed consolidation in the right mid and lower lobes. Patient was septic on presentation. Patient was continued on IV fluids and given a dose of ceftriaxone and vancomycin. Patient was eventually transferred to [facility] for further management. Tamiflu was also not available at the outside hospital facility. Chest x-ray showed a showed maybe underlying bibasilar atelectasis, right middle lobe pneumonia, follow-up PA and lateral chest x-ray suggested. CRP 40.1, lactic acid 0.8, AST 56 and ALT 81 WBC 4.9 Review of Systems Constitutional: He does have fever and chills and generalized weakness and malaise. Abdomen: Patient denied nausea vomiting and diarrhea and abdominal pain. Cardiovascular: Patient denies any chest pain or short of breath no palpitations. Respiratory: Cough with out sputum production and shortness of breath Neurologic: Patient denied any numbness or tingling headache. Musculoskeletal: Patient denies any complaints of joint swelling or deformity. Skin: Negative Psychiatric: Negative Endocrine: No heat or cold intolerance. No recent weight gain. Genitourinary: No dysuria or hematuria. All other 14 point ROS negative except the above Past Medical History Past Medical History: Asthma, Cancer, Diabetes Mellitus, Fibromyalgia, DARA D/Reflux, GI Bleed, Musculoskeletal Disorder, Osteoarthritis (OA), Skin Disorder Additional Past Medical History / Comment(s): migraines, tachycardia, seasonal allergies, deviated septum, diet controlled diabetes, Multiple Sclerosis with numbness left hand and left face and rt leg., optic neuritis , Hiatal Hernia., Hepatitis with mono (teenager)., Hx of stomach ulcers, IBS., Kidney Stones, Difficulty with hand eye coordination at times., Breast cancer diagnosis Jul, occ uses cane/walker or wheelchair, eczema, elevated triglyderides, neurogenic bladder History of Any Multi-Drug Resistant Organisms: None Reported Past Surgical History: Adenoidectomy, Appendectomy, Breast Surgery, Cholecystectomy, Hysterectomy, Orthopedic Surgery, Tonsillectomy Additional Past Surgical History / Comment(s): Right shoulder: (bone spurs, arthritis, partial clavicle removal), Left foot Mercado's neuroma tumor removal, cystocele/rectocele, rt breast lumpectomy removal of sentinal node August 19, 2018 Past Anesthesia/Blood Transfusion Reactions: Motion Sickness, Postoperative Nausea & Vomiting (PONV) Additional Past Anesthesia/Blood Transfusion Reaction / Comment(s): Adopted- unknown family hx. broken tooth from previous intubation Past Psychological History: Anxiety, Depression, PTSD Additional Psychological History / Comment(s): (Patient states that her step daughter was killed in a car accident in the summer of 2016, and she is suffering from PTSD) Smoking Status: Current every day smoker Past Alcohol Use History: None Reported Additional Past Alcohol Use History / Comment(s): 1 PPD for total of 21 yrs Past Drug Use History: None Reported Additional Drug Use History / Comment(s): none for 2 yrs - Past Family History Father History Unknown: Yes Family Medical History: Unable to Obtain Additional Family Medical History / Comment(s): adopted Mother History Unknown: Yes Family Medical History: Unable to Obtain Additional Family Medical History / Comment(s): adopted Medications and Allergies Home Medications Medication Instructions Recorded Confirmed Type Atenolol [Tenormin] 37.5 mg PO DAILY 08/13/18 09/16/18 History Etodolac [Lodine] 400 mg PO BID 09/15/18 09/15/18 History Citalopram Hydrobromide 40 mg PO DAILY 09/16/18 09/16/18 History [Citalopram HBr] Allergies Allergy/AdvReac Type Severity Reaction Status Date / Time Penicillins Allergy Unknown bleeding Verified 09/16/18 09:40 ulcer adhesive tape Allergy red skin Verified 09/16/18 09:40 with blisters bee venom protein (honey bee) Allergy Anaphylaxis Verified 09/16/18 09:40 latex Allergy Rash/Hives Verified 09/16/18 09:40 shellfish derived [Shellfish] Allergy Anaphylaxis Verified 09/16/18 09:40 iodine AdvReac Severe Anaphylaxis Verified 09/16/18 09:40 Sulfa (Sulfonamide AdvReac Severe Anaphylaxis Verified 09/16/18 09:40 Antibiotics) tree nut AdvReac Severe Anaphylaxis Verified 09/16/18 09:40 amoxicillin [From Augmentin] AdvReac Unknown Verified 09/16/18 09:40 clavulanic acid AdvReac Unknown Verified 09/16/18 09:40 [From Augmentin] lamotrigine [From Lamictal] AdvReac Unknown Verified 09/16/18 09:40 varenicline [From Chantix] AdvReac Hallucinati Verified 09/16/18 09:40 ons Physical Exam Vitals: Vital Signs Temp Pulse Pulse Resp BP Pulse Ox 09/16/18 06:01 98.8 F 09/16/18 05:00 100.8 F H 103 H 16 111/55 94 L 09/16/18 03:24 100.7 F H 09/16/18 00:15 92 16 09/15/18 20:43 98.3 F 95 17 100/55 98 Intake and Output 09/15/18 09/16/18 09/16/18 22:59 06:59 14:59 Intake Total 125 1500 Balance 125 1500 Intake: Intake, IV Titration 125 1500 Amount Sodium Chloride 0.9% 1, 125 1000 000 ml @ 125 mls/hr IV . Q8H [facility] Rx#:[id number] Sodium Chloride 0.9% 500 500 ml 500 ml @ 999 mls/hr IV .Q31M [facility] Rx#:[id number] Other: Voiding Method Toilet # Voids 2 1 Weight 63 kg PHYSICAL EXAMINATION: Patient is lying in the bed comfortably, no acute distress, awake alert and oriented.. HEENT: Normocephalic. Neck is supple. Pupils reactive. Nostrils clear. Oral cavity is moist. Ears reveal no drainage. Neck reveals no JVD, carotid bruits, or thyromegaly. CHEST EXAMINATION: Trachea is central. Symmetrical expansion. Right basilar c oarse breath sounds. No wheezing. Otherwise Lung avila clear to auscultation and percussion. CARDIAC: Normal S1, S2 with no gallops. No murmurs ABDOMEN: Soft. Bowel sounds normal. No organomegaly. No abdominal bruits. Extremities: reveal no edema. No clubbing or cyanosis Neurologically awake, alert, oriented x3 with well-coordinated movements. No focal deficits noted Skin: No rash or skin lesions. Psychiatric: Coperative. Nonsuicidal Musculoskeletal: No joint swelling or deformity. Normal range of motion. Results CBC & Chem 7: 09/16/18 08:12 09/16/18 08:12 Labs: Abnormal Lab Results - Last 24 Hours (Table) 09/16/18 09/16/18 Range/Units 08:12 08:12 Plt Count 129 L (150-450) k/uL Chloride 113 H (98-107) mmol/L Carbon Dioxide 20 L (22-30) mmol/L Glucose 100 H (74-99) mg/dL Calcium 8.3 L (8.4-10.2) mg/dL AST 56 H (14-36) U/L ALT 81 H (9-52) U/L C-Reactive Protein 40.1 H (<10.0) mg/L Total Protein 5.6 L (6.3-8.2) g/dL Albumin 3.2 L (3.5-5.0) g/dL Thrombosis Risk Factor Assmnt - DVT/VTE Prophylaxis DVT/VTE Prophylaxis: Pharmacologic Prophylaxis ordered - Choose All That Apply Any of the Below Risk Factors Present?: Yes Each Factor Represents 1 point: Age 41-60 years, Hx of IBD, History of prior major surgery (<1month), Obesity (BMI >25) Other Risk Factors: Yes Each Risk Factor Represents 2 Points: Malignancy Other congenital or acquired thrombophilia - If yes, enter type in comment: No Thrombosis Risk Factor Assessment Total Risk Factor Score: 6 Thrombosis Risk Factor Assessment Level: High Risk Assessment and Plan Assessment: Acute influenza A infection Right middle lobe pneumonia Sepsis secondary to above Recently diagnosed breast cancer status post lumpectomy and sentinel lymph node removal. Scheduled for chemo port Diabetes type 2 diet-controlled. Multiple sclerosis with left hand and face numbness and optic neuritis history GERD and hiatal hernia Osteoarthritis Neurogenic bladder Asthma/COPD Nicotine addiction Anxiety depression and PTSD DVT prophylaxis Patient will be continued on IV hydration. Continue with Tamiflu. Continue with antibiotics no cough Levaquin. DuoNeb's as needed. Pulmonary is on board. Smoking cessation has been counseled extensively. Follow-up culture reports. Further recommendations based on the clinical course. Patient is supposed to get MediPort for chemotherapy today. Oncology will be consulted. Prognosis is guarded. Time with Patient: Greater than 30
[2018-09-16] MEDS: HEPARIN SODIUM,PORCINE 5,000 UNIT/ML 1 ML VIAL SQ SCH (17:40)
[2018-09-16] MEDS: ONDANSETRON 4 MG/2 ML VIAL IVP PRN (19:08)
[2018-09-16 19:13] LABS: Hemoglobin A1C 6.8 % (4.0-6.0)
[2018-09-16] MEDS: IPRATROPIUM-ALBUTEROL 3 ML NEB INHALATION SCH (21:07)
[2018-09-16] MEDS: SYMBICORT 160-4.5 MCG INHALER INHALATION SCH (21:07)
[2018-09-16] MEDS ORDERED: IBUPROFEN 600 MG TAB PO STA (23:18)
[2018-09-17] MEDS: HEPARIN SODIUM,PORCINE 5,000 UNIT/ML 1 ML VIAL SQ SCH ×4 (00:06→23:11)
[2018-09-17] MEDS ORDERED: ZOLPIDEM 5 MG TAB PO PRN (00:37)
[2018-09-17] MEDS: SODIUM CHLORIDE 0.9% 1,000 ML IV SCH ×3 (05:42→20:11)
[2018-09-17] MEDS ORDERED: SODIUM CHLORIDE 0.9% 500 ML 500 ML IV ONE (06:24)
[2018-09-17 06:52] LABS: ALT 65 U/L (9-52); AST 43 U/L (14-36); Albumin 2.7 g/dL (3.5-5.0); Alkaline Phosphatase 59 U/L (38-126); Anion Gap 5 mmol/L; Blood Urea Nitrogen 5 mg/dL (7-17); Calcium 8.4 mg/dL (8.4-10.2); Carbon Dioxide 22 mmol/L (22-30); Chloride 115 mmol/L (98-107); Glucose 88 mg/dL (74-99); Potassium 3.4 mmol/L (3.5-5.1); Sodium 142 mmol/L (137-145); Total Bilirubin 0.3 mg/dL (0.2-1.3)
[2018-09-17 06:58] LABS: Basophils % (A) 0 %; Eosinophils % (A) 1 %; HCT 38.9 % (34.0-46.0); HGB 12.9 gm/dL (11.4-16.0); Lymphocytes # (A) 2.1 k/uL (1.0-4.8); Lymphocytes % (A) 41 %; MCH 32.8 pg (25.0-35.0); MCHC 33.3 g/dL (31.0-37.0); MCV 98.6 fL (80.0-100.0); Mean Platelet Volume 6.7; Monocytes # (A) 0.2 k/uL (0-1.0); Monocytes % (A) 4 %; Neutrophils # (A) 2.8 k/uL (1.3-7.7); Neutrophils % (A) 53 %; Platelet Count 115 k/uL (150-450); RBC 3.95 m/uL (3.80-5.40); RDW 14.1 % (11.5-15.5); WBC 5.2 k/uL (3.8-10.6)
[2018-09-17] MEDS: SYMBICORT 160-4.5 MCG INHALER INHALATION SCH ×2 (08:14→19:25)
[2018-09-17] MEDS: IPRATROPIUM-ALBUTEROL 3 ML NEB INHALATION SCH ×3 (08:14→19:25)
[2018-09-17] MEDS: NICOTINE 21MG/24HR PATCH TRANSDERM SCH (09:05)
[2018-09-17] MEDS: OSELTAMIVIR 75 MG CAP PO SCH ×2 (09:06→20:11)
[2018-09-17] MEDS: ATENOLOL 25 MG TAB PO SCH (09:06)
[2018-09-17] MEDS: LEVOFLOXACIN 750 MG TAB PO SCH (09:06)
[2018-09-17] MEDS: CITALOPRAM HYDROBROMIDE 20 MG TAB PO SCH (09:06)
[2018-09-17] MEDS: methylPREDNISolone SOD SUCCI 40 MG/ML 1 ML VIAL IV SCH ×3 (12:39→23:12)
[2018-09-17] MEDS: ACETAMINOPHEN TAB 325 MG TAB PO PRN (12:46)
[2018-09-17] MEDS: ONDANSETRON 4 MG/2 ML VIAL IVP PRN (12:47)
[2018-09-17 13:06] VITALS: RESP 18
--- NOTE | 2018-09-17 13:26 | P.PN ---
Subjective Progress Note Date: 09/17/18 Principal diagnosis: Influenza a infection, bilateral lower lobe pneumonia with suspected right middle lobe pneumonia, COPD exacerbation The patient is seen today in follow-up on the regular medical floor. She is currently awake and alert in no acute distress. She is still somewhat dyspneic with exertion. She has some wheezing. She is maintaining O2 saturations in the low 90s on room air. She is febrile with a temperature of 102. Hemodynamically stable. White count 5.2. Hemoglobin 12.9. Creatinine 0.56. He is continued on DuoNeb inhalations, Symbicort, Tamiflu, Levaquin. Habitrol patch is in place. Objective - Vital Signs Vital signs: Vital Signs Temp 102.0 F H 09/17/18 12:40 Pulse 90 09/17/18 13:07 Resp 18 09/17/18 12:40 BP 111/58 09/17/18 12:40 Pulse Ox 93 L 09/17/18 12:40 Intake & Output 09/16/18 09/17/18 09/17/18 18:59 06:59 18:59 Intake Total 2820 240 Balance 2820 240 Intake: Intake, IV Titration 1500 Amount Sodium Chloride 0.9% 1, 1000 000 ml @ 100 mls/hr IV . Q10H [facility] Rx#:[id number] Sodium Chloride 0.9% 500 500 ml 500 ml @ 999 mls/hr IV .Q31M [facility] Rx#:[id number] Oral 1320 240 Other: Voiding Method Toilet Toilet Toilet # Voids 3 3 - Exam GENERAL EXAM: Alert, active, comfortable in no apparent distress. Room air. HEAD: Normocephalic. EYES: Normal reaction of pupils, equal size. NOSE: Clear with pink turbinates. THROAT: No erythema or exudates. NECK: No masses, no JVD. CHEST: No chest wall deformity. LUNGS: Equal air entry with lateral end expiratory wheeze. CVS: S1 and S2 normal with no audible murmur, regular rhythm. ABDOMEN: No hepatosplenomegaly, normal bowel sounds, no guarding or rigidity. SPINE: No scoliosis or deformity SKIN: No rashes CENTRAL NERVOUS SYSTEM: No focal deficits, tone is normal in all 4 extremities. EXTREMITIES: There is no peripheral edema. No clubbing, no cyanosis. Peripheral pulses are intact. - Labs CBC & Chem 7: 09/17/18 06:12 09/17/18 06:12 Labs: Abnormal Lab Results - Last 24 Hours (Table) 09/16/18 09/17/18 09/17/18 Range/Units 08:12 06:12 06:12 Plt Count 115 L (150-450) k/uL Potassium 3.4 L (3.5-5.1) mmol/L Chloride 115 H (98-107) mmol/L BUN 5 L (7-17) mg/dL Hemoglobin A1c 6.8 H (4.0-6.0) % AST 43 H (14-36) U/L ALT 65 H (9-52) U/L Total Protein 5.0 L (6.3-8.2) g/dL Albumin 2.7 L (3.5-5.0) g/dL Assessment and Plan Assessment: Impression: #1 Dyspnea, multifactorial in a patient with an acute exacerbation of chronic obstructive pulmonary disease, acute influenza infection, bilateral pneumonia. #2 Febrile illness secondary to above. #3 Chronic and ongoing tobacco dependence. #4 History of multiple sclerosis. #5 Diabetes mellitus. #6 Irritable bowel syndrome. #7 History of arthritis. #8 History of depression. #9 History of posterior stress disorder. #10 Recent diagnosis of triple negative breast cancer. The plan was for port placement this week. Plan: The patient was seen and evaluated by Dr. Grande. She is still somewhat bronchospastic and wheezy today. We'll add IV Solu-Medrol. Continue Levaquin, bronchodilators, Tamiflu. She is again encouraged regarding the importance of complete smoking cessation. NicoDerm patches in place. We will continue to follow and make further recommendations based on her clinical status. I, the cosigning physician, performed a history & physical examination of the patient. Lungs sounds with few scattered rhonchi, end expiratory wheeze, diminished. Maintaining good O2 saturations in the 90s on room air. I discussed the assessment and plan of care with my nurse practitioner, Karly Andrew. I attest to the above note as dictated by her.
[2018-09-18 05:23] VITALS: BP 139/65; TEMP 98
[2018-09-18] MEDS: methylPREDNISolone SOD SUCCI 40 MG/ML 1 ML VIAL IV SCH ×2 (05:27→11:41)
[2018-09-18] MEDS: SODIUM CHLORIDE 0.9% 1,000 ML IV SCH (05:28)
[2018-09-18 06:43] LABS: Glucose,Whole Blood 197 mg/dL (75-99)
[2018-09-18] MEDS: ATENOLOL 25 MG TAB PO SCH (07:44)
[2018-09-18] MEDS: HEPARIN SODIUM,PORCINE 5,000 UNIT/ML 1 ML VIAL SQ SCH (07:44)
[2018-09-18] MEDS: CITALOPRAM HYDROBROMIDE 20 MG TAB PO SCH (07:45)
[2018-09-18] MEDS: OSELTAMIVIR 75 MG CAP PO SCH (07:45)
[2018-09-18] MEDS: LEVOFLOXACIN 750 MG TAB PO SCH (07:45)
[2018-09-18] MEDS: NICOTINE 21MG/24HR PATCH TRANSDERM SCH (07:46)
[2018-09-18] MEDS: SYMBICORT 160-4.5 MCG INHALER INHALATION SCH (07:56)
[2018-09-18] MEDS: IPRATROPIUM-ALBUTEROL 3 ML NEB INHALATION SCH (07:56)
[2018-09-18 08:11] VITALS: PULSE 80
[2018-09-18 11:50] LABS: Glucose,Whole Blood 164 mg/dL (75-99)
[2018-09-18] MEDS ORDERED: INSULIN ASPART (NovoLOG) 100 UNIT/ML VIAL SQ SCH (12:30)
--- NOTE | 2018-09-18 13:44 | P.PN ---
Subjective Progress Note Date: 09/18/18 Principal diagnosis: Influenza a infection, bilateral lower lobe pneumonia with suspected right middle lobe pneumonia, COPD exacerbation The patient is seen today in follow-up on the regular medical floor. She is currently up ambulating in the room. Awake and alert in no acute distress. She is quite anxious to go home. She is doing quite a bit better today as compared to yesterday. She's currently afebrile. Hemodynamically stable. Maintaining O2 saturations in the 90s on room air. She's been maintained on DuoNeb inhalations, Symbicort, IV Solu-Medrol. Antibiotics in form of Levaquin. Continued on Tamiflu. Objective - Vital Signs Vital signs: Vital Signs Temp 98 F 09/18/18 05:00 Pulse 80 09/18/18 08:10 Resp 18 09/18/18 05:00 BP 139/65 09/18/18 05:00 Pulse Ox 92 L 09/18/18 05:00 Intake & Output 09/17/18 09/18/18 09/18/18 18:59 06:59 18:59 Intake Total 480 800 240 Balance 480 800 240 Intake: Oral 480 800 240 Other: Voiding Method Toilet Toilet # Voids 2 3 - Exam GENERAL EXAM: Alert, active, comfortable in no apparent distress. Room air. HEAD: Normocephalic. EYES: Normal reaction of pupils, equal size. NOSE: Clear with pink turbinates. THROAT: No erythema or exudates. NECK: No masses, no JVD. CHEST: No chest wall deformity. LUNGS: Equal air entry with clear lungs, diminished. CVS: S1 and S2 normal with no audible murmur, regular rhythm. ABDOMEN: No hepatosplenomegaly, normal bowel sounds, no guarding or rigidity. SPINE: No scoliosis or deformity SKIN: No rashes CENTRAL NERVOUS SYSTEM: No focal deficits, tone is normal in all 4 extremities. EXTREMITIES: There is no peripheral edema. No clubbing, no cyanosis. Peripheral pulses are intact. - Labs CBC & Chem 7: 09/17/18 06:12 09/17/18 06:12 Labs: Abnormal Lab Results - Last 24 Hours (Table) 09/18/18 09/18/18 Range/Units 06:39 11:47 POC Glucose (mg/dL) 197 H 164 H (75-99) mg/dL Assessment and Plan Assessment: Impression: #1 Dyspnea, multifactorial in a patient with an acute exacerbation of chronic ob structive pulmonary disease, acute influenza infection, bilateral pneumonia. #2 Febrile illness secondary to above. #3 Chronic and ongoing tobacco dependence. #4 History of multiple sclerosis. #5 Diabetes mellitus. #6 Irritable bowel syndrome. #7 History of arthritis. #8 History of depression. #9 History of posterior stress disorder. #10 Recent diagnosis of triple negative breast cancer. The plan was for port placement this week. Plan: The patient was seen and evaluated by Dr. Grande. She is much improved today and anxious to go home. She is cleared for discharge from the pulmonary standpoint. Continue Levaquin, bronchodilators, Tamiflu. She is again encouraged regarding the importance of complete smoking cessation. NicoDerm patchs in place. We will continue to follow and make further recommendations based on her clinical status. I, the cosigning physician, performed a history & physical examination of the patient. Lungs sounds clear, diminished. Maintaining good O2 saturations in the 90s on room air. I discussed the assessment and plan of care with my nurse practitioner, Karly Andrew. I attest to the above note as dictated by her.
--- NOTE | 2018-09-19 10:25 | CDI ---
Documentation Clarification Form Date: 09/19/18 From: Loida Collins Phone: If you have a question regarding this query, please contact Hilary Gilmore at [phone] between 8am and 5pm. Admit Date: 09/15/2018 8:23:00 PM Patient Name: Hilary Ivy Visit Number: [id number] Discharge Date: 09/18/2018 1:21:00 PM ATTENTION: The Clinical Documentation Specialists (CDI) and [facility] Coding Staff appreciate your assistance in clarifying documentation. Please respond to the clarification below the line at the bottom and electronically sign. The CDI & [facility] Coding staff will review the response and follow-up if needed. Please note: Queries are made part of the Legal Health Record. If you have any questions, please contact the author of this message via ITS. Dr. Alondra Rose The patient presented with sepsis per documentation in the H&P. History/Risk Factors: Patient admited with acute influenza a infection and pneumonia. Clinical Indicators: Fever, chills generalized weakness and malaise. WBC: 4.9 Lactic acid: 0.8 Blood cultures: No blood cultures drawn. Vitals signs on admission: T. 98.3 on admission but up to 101+ on 09/16 then 102.0 on 09/17, P. 88 up to 10, R. 17, BP 100/55. ID Consult: Influenza A and pneumonia community acquired. Antibiotics: IV Levaquin IV Bolus: 1 Liter then 1 Liter at 100 mls/hr In your professional opinion, please clarify if these findings signify one of the following conditions Sepsis ruled out SIRS, without underlying infectious process Sepsis Severe Sepsis Septic Shock Other, please specify Unable to determine See Discharge Summary MTDD
--- NOTE | 2018-10-05 22:40 | P.PN ---
Subjective Progress Note Date: 09/17/18 Principal diagnosis: Acute influenza A infection Patient is a 53-year-old female with a known history of breast cancer status post lumpectomy and sentinel lymph node biopsy currently patient is scheduled to get mediport for chemotherapy, asthma, diabetes type 2, fibromyalgia, GERD and osteoarthritis and other medical problems including multiple sclerosis initially presented to [facility] with complaints of cough congestion and not feeling very well. Patient was febrile with T-max of 104.2 and the hospital. Patient was also having generalized body aches. Patient was tested positive for influenza A. Patient was tachycardic and tachypneic along with lactic acid elevation at 2.2. Chest x-ray showed consolidation in the right mid and lower lobes. Patient was septic on presentation. Patient was continued on IV fluids and given a dose of ceftriaxone and vancomycin. Patient was eventually transferred to [facility] for further management. Tamiflu was also not available at the outside hospital facility. Chest x-ray showed a showed maybe underlying bibasilar atelectasis, right middle lobe pneumonia, follow-up PA and lateral chest x-ray suggested. CRP 40.1, lactic acid 0.8, AST 56 and ALT 81 WBC 4.9 09/17/2018 Patient's breathing status is about the same. Patient was found have wheezing today. Started on steroids. Pulmonary has seen the patient. Otherwise continue the current management including Tamiflu. Conjunctivae on breathing treatments. No fever no chills. No nausea vomiting or abdominal pain. Clinically slightly improved. Current medications reviewed. Objective - Vital Signs Vital signs: Vital Signs Temp 102.0 F H 09/17/18 12:40 Pulse 96 09/17/18 14:57 Resp 18 09/17/18 14:57 BP 111/58 09/17/18 12:40 Pulse Ox 93 L 09/17/18 12:40 Intake & Output 09/16/18 09/17/18 09/17/18 18:59 06:59 18:59 Intake Total 2820 480 Balance 2820 480 Intake: Intake, IV Titration 1500 Amount Sodium Chloride 0.9% 1, 1000 000 ml @ 100 mls/hr IV . Q10H [facility] Rx#:[id number] Sodium Chloride 0.9% 500 500 ml 500 ml @ 999 mls/hr IV .Q31M [facility] Rx#:[id number] Oral 1320 480 Other: Voiding Method Toilet Toilet Toilet # Voids 3 3 2 - Exam PHYSICAL EXAMINATION: Patient is lying in the bed comfortably, no acute distress, awake alert and oriented.. HEENT: Normocephalic. Neck is supple. Pupils reactive. Nostrils clear. Oral cavity is moist. Ears reveal no drainage. Neck reveals no JVD, carotid bruits, or thyromegaly. CHEST EXAMINATION: Trachea is central. Symmetrical expansion. Right basilar coarse breath sounds. Mild wheezing. Otherwise Lung avila clear to auscultation and percussion. CARDIAC: Normal S1, S2 with no gallops. No murmurs ABDOMEN: Soft. Bowel sounds normal. No organomegaly. No abdominal bruits. Extremities: reveal no edema. No clubbing or cyanosis Neurologically awake, alert, oriented x3 with well-coordinated movements. No focal deficits noted Skin: No rash or skin lesions. Psychiatric: Coperative. Nonsuicidal Musculoskeletal: No joint swelling or deformity. Normal range of motion. - Labs CBC & Chem 7: 09/17/18 06:12 09/17/18 06:12 Labs: Abnormal Lab Results - Last 24 Hours (Table) 09/16/18 09/17/18 09/17/18 Range/Units 08:12 06:12 06:12 Plt Count 115 L (150-450) k/uL Potassium 3.4 L (3.5-5.1) mmol/L Chloride 115 H (98-107) mmol/L BUN 5 L (7-17) mg/dL Hemoglobin A1c 6.8 H (4.0-6.0) % AST 43 H (14-36) U/L ALT 65 H (9-52) U/L Total Protein 5.0 L (6.3-8.2) g/dL Albumin 2.7 L (3.5-5.0) g/dL Assessment and Plan Assessment: Acute influenza A infection Right middle lobe pneumonia Sepsis secondary to above Recently diagnosed breast cancer status post lumpectomy and sentinel lymph node removal. Scheduled for chemo port Diabetes type 2 diet-controlled. Multiple sclerosis with left hand and face numbness and optic neuritis history GERD and hiatal hernia Osteoarthritis Neurogenic bladder Asthma/COPD Nicotine addiction Anxiety depression and PTSD DVT prophylaxis Patient will be continued on IV hydration. Continue with Tamiflu. Continue with antibiotics no cough Levaquin. DuoNeb's as needed. Pulmonary is on board. Smoking cessation has been counseled extensively. Follow-up culture reports. Further recommendations based on the clinical course. Patient is supposed to get MediPort for chemotherapy today. Oncology will be consulted. Prognosis is guarded. Time with Patient: Greater than 30
--- NOTE | 2018-10-05 22:43 | P.DS ---
Providers Date of admission: 09/15/18 20:23 Expected date of discharge: 09/18/18 Attending physician: Alondra Rose Consults: 09/16/18 06:00 Consult Physician Routine Consulting Provider: Gordon Bradford Consult Reason/Comments: Cystic changes & focal opacity on CXR Do you want consulting provider notified?: Yes, Notify in am Placement Type Exists?: Yes Primary care physician: Alondra Rose [facility] Course: Discharge diagnosis Acute influenza A infection Right middle lobe pneumonia Mild COPD exacerbation. Improved Sepsis secondary to above Recently diagnosed breast cancer status post lumpectomy and sentinel lymph node removal. Scheduled for chemo port Diabetes type 2 diet-controlled. Multiple sclerosis with left hand and face numbness and optic neuritis history GERD and hiatal hernia Osteoarthritis Neurogenic bladder Asthma/COPD Nicotine addiction Anxiety depression and PTSD DVT prophylaxis Hospital course Patient is a 53-year-old female with a known history of breast cancer status post lumpectomy and sentinel lymph node biopsy currently patient is scheduled to get mediport for chemotherapy, asthma, diabetes type 2, fibromyalgia, GERD and osteoarthritis and other medical problems including multiple sclerosis initially presented to [facility] with complaints of cough congestion and not feeling very well. Patient was febrile with T-max of 104.2 and the hospital. Patient was also having generalized body aches. Patient was tested positive for influenza A. Patient was tachycardic and tachypneic along with lactic acid elevation at 2.2. Chest x-ray showed consolidation in the right mid and lower lobes. Patient was septic on presentation. Patient was continued on IV fluids and given a dose of ceftriaxone and vancomycin. Patient was eventually transferred to [facility] for further management. Tamiflu was also not available at the outside hospital facility. Chest x-ray showed a showed maybe underlying bibasilar atelectasis, right middle lobe pneumonia, follow-up PA and lateral chest x-ray suggested. CRP 40.1, lactic acid 0.8, AST 56 and ALT 81 WBC 4.9 09/17/2018 Patient's breathing status is about the same. Patient was found have wheezing today. Started on steroids. Pulmonary has seen the patient. Otherwise continue the current management including Tamiflu. Conjunctivae on breathing treatments. No fever no chills. No nausea vomiting or abdominal pain. Clinically slightly improved. 09/18/2018 Patient did improve clinically. Able to ambulate without much shortness of breath. Patient be continued on Tamiflu and antibiotic, Levaquin. Patient is stable to be discharged home. Pulmonary has seen the patient. PHYSICAL EXAMINATION: Patient is lying in the bed comfortably, no acute distress, awake alert and oriented.. HEENT: Normocephalic. Neck is supple. Pupils reactive. Nostrils clear. Oral cavity is moist. Ears reveal no drainage. Neck reveals no JVD, carotid bruits, or thyromegaly. CHEST EXAMINATION: Trachea is central. Symmetrical expansion. Right basilar coarse breath sounds. No wheezing. No rhonchi.. CARDIAC: Normal S1, S2 with no gallops. No murmurs ABDOMEN: Soft. Bowel sounds normal. No organomegaly. No abdominal bruits. Extremities: reveal no edema. No clubbing or cyanosis Neurologically awake, alert, oriented x3 with well-coordinated movements. No focal deficits noted Skin: No rash or skin lesions. Psychiatric: Coperative. Nonsuicidal Musculoskeletal: No joint swelling or deformity. Normal range of motion. Discharge vitals reviewed. Patient Condition at Discharge: Good Plan - Discharge Summary Discharge Rx Participant: Yes New Discharge Prescriptions: New Levofloxacin [Levaquin] 750 mg PO DAILY #2 tab Oseltamivir [Tamiflu] 75 mg PO Q12HR #4 cap Continue Atenolol [Tenormin] 37.5 mg PO DAILY Etodolac [Lodine] 400 mg PO BID Citalopram Hydrobromide [Citalopram HBr] 40 mg PO DAILY Discharge Medication List Atenolol [Tenormin] 37.5 mg PO DAILY 08/13/18 [History] Etodolac [Lodine] 400 mg PO BID 09/15/18 [History] Citalopram Hydrobromide [Citalopram HBr] 40 mg PO DAILY 09/16/18 [History] Levofloxacin [Levaquin] 750 mg PO DAILY #2 tab 09/18/18 [Rx] Oseltamivir [Tamiflu] 75 mg PO Q12HR #4 cap 09/18/18 [Rx] Patient Instructions/Handouts: Influenza (DC) Activity/Diet/Wound Care/Special Instructions: Activity as tolerated. Resume diet. Discharge Disposition: HOME SELF-CARE
== END 2018-09-18 13:21 | disposition home or self-care (01) | DRG 871 ==
LOC: 3NMEDONC 20:23
PROVIDERS: ADMIT Internal Medicine; ATTEND Internal Medicine
DX: A41.9 Sepsis, unspecified organism (principal); J18.9 Pneumonia, unspecified organism; J10.08 Influenza due to other identified influenza virus with other specified pneumonia; J44.0 Chronic obstructive pulmonary disease with (acute) lower respiratory infection; J44.1 Chronic obstructive pulmonary disease with (acute) exacerbation; H46.9 Unspecified optic neuritis; G35 Multiple sclerosis; N31.9 Neuromuscular dysfunction of bladder, unspecified; C50.919 Malignant neoplasm of unspecified site of unspecified female breast; E11.9 Type 2 diabetes mellitus without complications; F17.200 Nicotine dependence, unspecified, uncomplicated; F41.9 Anxiety disorder, unspecified; F43.10 Post-traumatic stress disorder, unspecified; K21.9 Gastro-esophageal reflux disease without esophagitis; K58.9 Irritable bowel syndrome, unspecified; M19.90 Unspecified osteoarthritis, unspecified site; M79.7 Fibromyalgia; G43.909 Migraine, unspecified, not intractable, without status migrainosus; J30.2 Other seasonal allergic rhinitis; K44.9 Diaphragmatic hernia without obstruction or gangrene; L30.9 Dermatitis, unspecified; E78.1 Pure hyperglyceridemia; F32.9 Major depressive disorder, single episode, unspecified; Z17.1 Estrogen receptor negative status [ER-]; Z87.11 Personal history of peptic ulcer disease; Z87.442 Personal history of urinary calculi; Z90.710 Acquired absence of both cervix and uterus; Z90.49 Acquired absence of other specified parts of digestive tract; Z88.2 Allergy status to sulfonamides; Z88.8 Allergy status to other drugs, medicaments and biological substances; Z88.1 Allergy status to other antibiotic agents; Z91.030 Bee allergy status; Z91.018 Allergy to other foods; Z88.0 Allergy status to penicillin; Z91.013 Allergy to seafood; Z79.899 Other long term (current) drug therapy
CPT/HCPCS: 71045; 80053; 82308; 83036; 83605; 85025; 86140; 87324; 93005; 94640